=== PATIENT | female | born 1975 | race Caucasian/White ===

== ENCOUNTER → 2017-08-05 | Outpatient (REF) | payer BC ==
[2017-08-08 14:16] LABS: HPV LOW VOL RFLX Negative (Negative)
== END ==
LOC: M LAB REF 14:29
DX: Z12.4 Encounter for screening for malignant neoplasm of cervix (principal)
CPT/HCPCS: G0123

== ENCOUNTER 2017-09-12 15:54 | Emergency (ER) | payer BC ==
[2017-09-12] MEDS: NS 1,000 ML IV (16:30)
[2017-09-12] MEDS: ONDANSETRON 4MG/2ML VIAL (J2405) IV (16:30)
[2017-09-12 16:51] LABS: BEDSIDE GLUCOSE 110 MG/DL (70-105)
[2017-09-12 16:58] LABS: BASO % 0.4 % (0.0-1.0); EOS % 0.4 % (0.0-3.0); HEMATOCRIT 42.3 % (36.0-47.0); HEMOGLOBIN 14.5 g/dl (12.0-15.5); IMMATURE GRANULOCYTE % 0.4 % (0-3.0); LYMPH # 1.3 10^3/uL (1.5-4.5); MEAN CORPUSCULAR HEMOGLOBIN 27.1 pg (27.0-33.0); MEAN CORPUSCULAR HGB CONC 34.3 g/dl (32.0-36.5); MEAN CORPUSCULAR VOLUME 79.1 fl (80.0-96.0); MONO # 0.4 10^3/uL (0.0-0.8); MONO % 3.9 % (0.0-5.0); NEUTROPHILS # 8.4 10^3/uL (1.8-7.7); NEUTROPHILS % 81.9 % (36.0-66.0); PLATELET COUNT, AUTOMATED 314 10^3/uL (150-450); RED BLOOD COUNT 5.35 10^6/uL (4.00-5.40); RED CELL DISTRIBUTION WIDTH 13.2 % (11.5-14.5); WHITE BLOOD COUNT 10.3 10^3/uL (4.0-10.0)
[2017-09-12 17:36] LABS: ANION GAP 7 MEQ/L (8-16); BLOOD UREA NITROGEN 16 MG/DL (7-18); CARBON DIOXIDE LEVEL 28 MEQ/L (21-32); CHLORIDE LEVEL 102 MEQ/L (98-107); CREATININE FOR GFR 0.93 MG/DL (0.55-1.30); GLOMERULAR FILTRATION RATE > 60.0 (>58); GLUCOSE, FASTING 111 MG/DL (70-100); POTASSIUM SERUM 3.3 MEQ/L (3.5-5.1); SODIUM LEVEL 137 MEQ/L (136-145)
[2017-09-12] MEDS: POTASSIUM CHLORIDE 10 MEQ SR TABLET PO (17:45)
== END 2017-09-12 18:28 | disposition home or self-care (01) ==
LOC: M ED 15:54
DX: R55 Syncope and collapse (principal); N93.9 Abnormal uterine and vaginal bleeding, unspecified; Z97.5 Presence of (intrauterine) contraceptive device; Z98.890 Other specified postprocedural states; Z79.899 Other long term (current) drug therapy
CPT/HCPCS: J2405

== ENCOUNTER → 2017-09-12 | Outpatient (REF) | payer BC | LOC: M LAB REF 18:36 | DX: R87.610 Atypical squamous cells of undetermined significance on cytologic smear of cervix (ASC-US) (principal) | CPT/HCPCS: 88304 ==

== ENCOUNTER → 2018-10-26 | Outpatient (REF) | payer BC ==
[~2018-10-26] MED LIST: D32000CA PO; FLUO20CA19 PO; IBUP600T42 PO; LEVO100I PO; MAPA500T2 PO; PANT20TA2 PO; PRENTAB40 PO; ZOFR4TAB14 PO
[2018-10-28 14:47] LABS: HPV HYBRID CAPTURE II Negative (Negative)
== END ==
LOC: M LAB REF 12:55
PROVIDERS: ATTEND Advanced Practice Midwife
DX: R87.610 Atypical squamous cells of undetermined significance on cytologic smear of cervix (ASC-US) (principal)
CPT/HCPCS: 87624; G0123

== ENCOUNTER 2019-03-04 11:38 | Outpatient (RCR) | payer BC | END 2019-03-11 | LOC: M PT 11:38 | PROVIDERS: ATTEND Advanced Practice Midwife | DX: N39.3 Stress incontinence (female) (male) (principal) ==

== ENCOUNTER 2019-04-06 08:07 | Outpatient (RCR) | payer BC | END 2019-04-10 | LOC: M PT 08:07 | PROVIDERS: ATTEND Advanced Practice Midwife | DX: Z47.89 Encounter for other orthopedic aftercare (principal) ==

== ENCOUNTER 2019-04-20 07:57 | Outpatient (RCR) | payer BC | END 2019-05-11 | LOC: M PT 07:57 | PROVIDERS: ATTEND Advanced Practice Midwife | DX: Z51.89 Encounter for other specified aftercare (principal); N39.3 Stress incontinence (female) (male) ==

== ENCOUNTER → 2020-10-30 | Outpatient (REF) | payer BC ==
[~2020-10-30] MED LIST changes: -FLUO20CA19 PO; +FLUO20CA22 PO; -PANT20TA2 PO; +PANT20TA6 PO
== END ==
LOC: M SFHCWAGY 18:38
PROVIDERS: ATTEND Advanced Practice Midwife
DX: Z01.419 Encounter for gynecological examination (general) (routine) without abnormal findings (principal); Z12.4 Encounter for screening for malignant neoplasm of cervix

== ENCOUNTER → 2020-12-25 | Outpatient (REF) | payer BC | LOC: M LAB REF 18:32 | PROVIDERS: ATTEND Family Medicine | DX: J06.9 Acute upper respiratory infection, unspecified (principal) ==

== ENCOUNTER → 2020-12-29 | Outpatient (CLI) | payer BC ==
--- NOTE | 2020-12-29 11:19 | REPMRS ---
Patient History The patient states she had a clinical breast exam in October 2020. Patient has history of other cancer at age 41 and had first child at age 38. Family history of colorectal cancer in maternal grandmother, prostate cancer in maternal grandfather. Took hormonal contraceptives for 5 years. No breast complaints today Patient signed the MRS sheet 1st covid vaccine 07/19/20-right arm-Pfizer 2nd covid vaccine 08/09/20 [facility] PACS Patient Identification Verified Patient denied Digital Woman Screen Mammo: December 29, 2020 - Exam #: [id number] Bilateral CC and MLO view(s) were taken. Technologist: Kirsty Hernandez, Technologist FINDINGS: The breast tissue is heterogeneously dense. This may lower the sensitivity of mammography. Screening. Digital screening (2D) mammography was performed bilaterally in the CC and MLO projections. Additionally, breast tomosynthesis (3D mammography) was performed bilaterally in the CC and MLO projections. Todays exam was compared to the prior exam/exams. By history, the patient has no complaints of a palpable breast abnormality or other significant breast complaints. The breasts are unchanged in size and shape.Once again, dense heterogenous fibroglandular elements are seen bilaterally in a stable appearing pattern but to such a degree that the sensitivity of the mammogram in detecting cancer is decreased. There are no landon-soft tissue densities or spiculated masses. There is no internal architectural distortion.Once again, stable benign appearing calcifications are seen. There are no suspicious lanodn-calcific clusters. Skin thickening or nipple retraction is not present. IMPRESSION: BI-RADS Category 2- Benign Findings. There is no evidence of malignant alteration of the breasts. Followup examination recommended in one year. The Volpara volumetric breast density category is C, the breasts are heterogenously dense which may obscure small masses. This mammogram was read with the assistance of Fl[employer]ours,an FDA approved computer aided detection system for mammography. The lifetime Tyrer-Cuzick score is 14.4 % Due to the density of the breasts or Tyrer Cuzick score of 20% or greater, MRI/whole breast screening ultrasound is warranted. Negative x-ray reports should not delay surgical consultation if a dominant or clinically suspicious mass is present. Not all breast cancers can be identified by mammography. Therefore, we recommend that you continue to perform regular breast self-examination and physical examination and then promptly contact your physician of any concerns or changes. Adenosis and dense breasts may obscure an underlying neoplasm. Assessment: BI-RADS/ACR category 2 mammogram. Benign Findings. Recommendation Routine screening mammogram of both breasts in 1 year. Electronically Signed By: Jimbo Casillas DO 12/29/20 [id number]
== END ==
LOC: M WHC 09:34
PROVIDERS: ATTEND Advanced Practice Midwife
DX: Z12.31 Encounter for screening mammogram for malignant neoplasm of breast (principal); Z85.89 Personal history of malignant neoplasm of other organs and systems; Z80.0 Family history of malignant neoplasm of digestive organs; Z92.0 Personal history of contraception; R92.1 Mammographic calcification found on diagnostic imaging of breast

== ENCOUNTER → 2021-01-02 | Outpatient (REF) | payer BC | LOC: M LAB REF 14:52 | PROVIDERS: ATTEND Physician Assistant | DX: D22.61 Melanocytic nevi of right upper limb, including shoulder (principal) ==

== ENCOUNTER → 2021-06-28 | Outpatient (CLI) | payer BC ==
[2021-06-28 15:36] LABS: BASO % 0.6 % (0.0-1.0); EOS % 0.6 % (0.0-3.0); HEMATOCRIT 41.2 % (36.0-47.0); HEMOGLOBIN 13.4 g/dl (12.0-15.5); LYMPH # 2.1 10^3/uL (1.5-5.0); LYMPH % 31.4 % (24.0-44.0); MEAN CORPUSCULAR HEMOGLOBIN 27.1 pg (27.0-33.0); MEAN CORPUSCULAR HGB CONC 32.5 g/dl (32.0-36.5); MEAN CORPUSCULAR VOLUME 83.2 fl (80.0-96.0); MONO # 0.3 10^3/uL (0.0-0.8); NEUTROPHILS # 4.3 10^3/uL (1.5-8.5); NEUTROPHILS % 62.3 % (36.0-66.0); PLATELET COUNT, AUTOMATED 324 10^3/uL (150-450); RED BLOOD COUNT 4.95 10^6/uL (4.00-5.40); WHITE BLOOD COUNT 6.8 10^3/uL (4.0-10.0)
[2021-06-28 16:06] LABS: ALBUMIN 3.9 GM/DL (3.2-5.2); ALT/SGPT 20 U/L (12-78); BILIRUBIN,TOTAL 0.7 MG/DL (0.2-1.0); BLOOD UREA NITROGEN 16 MG/DL (7-18); CALCIUM LEVEL 9.4 MG/DL (8.5-10.1); CARBON DIOXIDE LEVEL 30 MEQ/L (21-32); CHLORIDE LEVEL 103 MEQ/L (98-107); CHOLESTEROL LEVEL 182 MG/DL (<200); CHOLESTEROL RISK RATIO 2.757 (<5); CREATININE FOR GFR 0.93 MG/DL (0.55-1.30); FREE T4 1.07 NG/DL (0.76-1.46); GLOMERULAR FILTRATION RATE > 60.0 (>58); GLUCOSE, FASTING 81 MG/DL (70-100); HDL CHOLESTEROL 66 MG/DL (>40); LDL CHOLESTEROL 106 MG/DL (<100); NON-HDL-C 116 MG/DL; POTASSIUM SERUM 4.3 MEQ/L (3.5-5.1); SODIUM LEVEL 138 MEQ/L (136-145); TOTAL PROTEIN 6.9 GM/DL (6.4-8.2); TRIGLYCERIDES LEVEL 52 MG/DL (<150)
== END ==
LOC: M PLALAB 14:13
PROVIDERS: ATTEND Family Medicine
DX: Z13.29 Encounter for screening for other suspected endocrine disorder (principal); Z13.0 Encounter for screening for diseases of the blood and blood-forming organs and certain disorders involving the immune mechanism; Z13.220 Encounter for screening for lipoid disorders

== ENCOUNTER → 2022-06-20 | Outpatient (CLI) | payer BC | LOC: M WHC 13:38 | PROVIDERS: ATTEND Nurse Practitioner Adult Health | DX: Z53.9 Procedure and treatment not carried out, unspecified reason (principal) ==

== ENCOUNTER → 2022-07-11 | Outpatient (CLI) | payer BC | LOC: M WHC 08:08 | PROVIDERS: ATTEND Family Medicine | DX: O92.6 Galactorrhea (principal) | CPT/HCPCS: 77066; G0279 ==

== ENCOUNTER → 2022-07-11 | Outpatient (CLI) | payer BC ==
[2022-07-11 14:16] LABS: BASO % 0.6 % (0.0-1.0); EOS # 0.1 10^3/uL (0.0-0.5); EOS % 0.9 % (0.0-3.0); HEMATOCRIT 45.9 % (36.0-47.0); HEMOGLOBIN 14.6 g/dl (12.0-15.5); LYMPH # 1.8 10^3/uL (1.5-5.0); LYMPH % 26.9 % (24.0-44.0); MEAN CORPUSCULAR HEMOGLOBIN 26.8 pg (27.0-33.0); MEAN CORPUSCULAR HGB CONC 31.8 g/dl (32.0-36.5); MEAN CORPUSCULAR VOLUME 84.2 fl (80.0-96.0); MONO # 0.4 10^3/uL (0.0-0.8); MONO % 5.8 % (2.0-8.0); NEUTROPHILS # 4.3 10^3/uL (1.5-8.5); NEUTROPHILS % 65.6 % (36.0-66.0); PLATELET COUNT, AUTOMATED 309 10^3/uL (150-450); RED BLOOD COUNT 5.45 10^6/uL (4.00-5.40); WHITE BLOOD COUNT 6.5 10^3/uL (4.0-10.0)
[2022-07-11 14:41] LABS: ALBUMIN 4.1 G/DL (3.2-5.2); ALKALINE PHOSPHATASE 63 U/L (46-116); ALT/SGPT 21 U/L (7.0-40); AST/SGOT 21 U/L (<34); BILIRUBIN,TOTAL 0.7 MG/DL (0.3-1.2); BLOOD UREA NITROGEN 15 MG/DL (9-23); CALCIUM LEVEL 9.7 MG/DL (8.5-10.1); CARBON DIOXIDE LEVEL 32 MMOL/L (20-31); CHLORIDE LEVEL 103 MMOL/L (98-107); CHOLESTEROL LEVEL 174 MG/DL (<200); CHOLESTEROL RISK RATIO 2.61 (<5); CREATININE FOR GFR 0.95 MG/DL (0.55-1.30); GLOMERULAR FILTRATION RATE > 60.0 (>58); GLUCOSE, FASTING 103 MG/DL (60-100); HDL CHOLESTEROL 66.5 MG/DL (>40); LDL CHOLESTEROL 95.3 MG/DL (<100); NON-HDL-C 108 MG/DL; POTASSIUM SERUM 5.4 MMOL/L (3.5-5.1); SODIUM LEVEL 138 MMOL/L (136-145); TRIGLYCERIDES LEVEL 61 MG/DL (<150)
[2022-07-11 14:42] LABS: FREE T4 1.04 NG/DL (0.89-1.76); THYROID STIMULATING HORMONE 2.378 uIU/ML (0.55-4.78)
[2022-07-11 14:43] LABS: PROLACTIN 5.36 NG/ML
== END ==
LOC: M PLALAB 09:50
PROVIDERS: ATTEND Family Medicine
DX: Z13.29 Encounter for screening for other suspected endocrine disorder (principal); O92.6 Galactorrhea; Z13.0 Encounter for screening for diseases of the blood and blood-forming organs and certain disorders involving the immune mechanism

== ENCOUNTER → 2022-08-01 | Outpatient (CLI) | payer BC | LOC: M PLARAD 11:04 | PROVIDERS: ATTEND Family Medicine | DX: M54.16 Radiculopathy, lumbar region (principal); M51.26 Other intervertebral disc displacement, lumbar region ==

== ENCOUNTER → 2023-09-17 | Outpatient (REF) | payer BC | LOC: M SFHCWAGY 15:21 | PROVIDERS: ATTEND Specialist | DX: Z12.4 Encounter for screening for malignant neoplasm of cervix (principal) | CPT/HCPCS: 87624; G0123 ==

== ENCOUNTER → 2023-09-17 | Outpatient (CLI) | payer BC | LOC: M WHC 13:00 | PROVIDERS: ATTEND Specialist | DX: Z12.31 Encounter for screening mammogram for malignant neoplasm of breast (principal) ==

== ENCOUNTER → 2023-10-07 | Outpatient (CLI) | payer BC | LOC: M WHC 09:12 | PROVIDERS: ATTEND Specialist | DX: R92.8 Other abnormal and inconclusive findings on diagnostic imaging of breast (principal) | CPT/HCPCS: 77065; G0279 ==

== ENCOUNTER → 2024-05-28 | Outpatient (CLI) | payer BC ==
[~2024-05-28] MED LIST changes: +ALBU8.5H; +AZIT500T5; +BENZ200C70; +DOXY-441 PO; +FLUO-365 PO; -FLUO20CA22 PO; +PRED20TA PO; +VENTAER INH
== END ==
LOC: M PLAIMG 09:00
PROVIDERS: ATTEND Family Medicine
DX: J20.9 Acute bronchitis, unspecified (principal); R91.8 Other nonspecific abnormal finding of lung field

== ENCOUNTER 2024-06-04 13:51 | Emergency (ER) | payer BC ==
[~2024-06-04] VITALS: Ht 177.8 cm; Wt 87.6 kg
[~2024-06-04 13:51] MED LIST changes: -ALBU8.5H; -AZIT500T5; -BENZ200C70; -DOXY-441 PO; -PRED20TA PO; -VENTAER INH
[2024-06-04] MEDS ORDERED: ALBU8.5H (14:08)
[2024-06-04] MEDS ORDERED: AZIT500T5 (14:08)
[2024-06-04] MEDS ORDERED: BENZ200C70 (14:08)
[2024-06-04] MEDS: predniSONE 20 MG TAB PO ONE (16:24)
[2024-06-04] MEDS: DOXYCYCLINE HYCLATE 100MG TABLET PO ONE (16:24)
[2024-06-04] MEDS: ALBUTEROL 90 MCG/ACT 8GM HFA INHALER INH ONE (16:33)
[2024-06-04 17:00] VITALS: BP 106/66; O2SAT 100
[2024-06-04] MEDS ORDERED: PRED20TA PO (17:00)
[2024-06-04] MEDS ORDERED: DOXY-441 PO (17:00)
[2024-06-04] MEDS ORDERED: VENTAER INH (17:00)
[2024-06-04 17:11] VITALS: TEMP 97.9
== END 2024-06-04 17:12 | disposition home or self-care (01) ==
LOC: M ED 13:51
DX: J20.9 Acute bronchitis, unspecified (principal); F41.9 Anxiety disorder, unspecified; Z79.899 Other long term (current) drug therapy
CPT/HCPCS: 71046; 87486; 87581; 87633; 87798; 94640; 94760; 99284; J7512